=== PATIENT | male | born 1985 | race Native Hawaiian/Other Pacific Islander ===

== ENCOUNTER 2016-12-18 11:49 | Emergency (ER) | payer MEDICAID ==
[2016-12-18 12:14] VITALS: BP 144/91; PULSE 77; RESP 18; TEMP 97.8
--- NOTE | 2016-12-18 12:41 | ED ---
Upper Extremity HPI - General Chief Complaint: Extremity Injury, Upper Stated Complaint: RT SHOULDER PAIN Time Seen by Provider: 12/18/16 12:27 Source: patient, RN notes reviewed, old records reviewed Mode of arrival: ambulatory Limitations: physical limitation - History of Present Illness Initial Comments: 31-year-old male presents the ED chief complaint of right shoulder pain. Patient reports that he was trying to start up a m[place], and when he pulled the pulse started he felt something tear within his right shoulder. He has a known history of rotator cuff injury. He states that then he had increasing pain. He denies any elbow pain denies any peripheral paresthesias. He reports the pain is mainly over the posterior shoulder.Patient denies any recent fever, chills, shortness of breath, chest pain, back pain, abdominal pain , nausea vomiting, numbness or tingling, dysuria or hematuria, constipation or diarrhea, headaches or visual changes, or any other current symptoms - Related Data Previous Rx's Medication Instructions Recorded Ibuprofen [Motrin] 600 mg PO Q6HR PRN #30 tab 12/18/16 traMADol HCl [Ultram] 50 mg PO Q6H PRN #15 tab 12/18/16 Allergies Allergy/AdvReac Type Severity Reaction Status Date / Time No Known Allergies Allergy Verified 12/18/16 12:14 Review of Systems ROS Statement: Those systems with pertinent positive or pertinent negative responses have been documented in the HPI. ROS Other: All systems not noted in ROS Statement are negative. Past Medical History Past Medical History: No Reported History History of Any Multi-Drug Resistant Organisms: None Reported Additional Past Surgical History / Comment(s): VASECTOMY Past Psychological History: No Psychological Hx Reported Smoking Status: Current every day smoker Past Alcohol Use History: Occasional Past Drug Use History: None Reported General Exam - General Exam Comments Initial Comments: 31-year-old male. No acute distress. Limitations: physical limitation General appearance: alert, in no apparent distress Head exam: Present: atraumatic, normocephalic, normal inspection Eye exam: Present: normal appearance, PERRL, EOMI. Absent: scleral icterus, conjunctival injection, periorbital swelling ENT exam: Present: normal exam, mucous membranes moist Neck exam: Present: normal inspection. Absent: tenderness, meningismus, lymphadenopathy Respiratory exam: Present: normal lung sounds bilaterally. Absent: respiratory distress, wheezes, rales, rhonchi, stridor Cardiovascular Exam: Present: regular rate, normal rhythm, normal heart sounds. Absent: systolic murmur, diastolic murmur, rubs, gallop, clicks GI/Abdominal exam: Present: soft, normal bowel sounds. Absent: distended, tenderness, guarding, rebound, rigid Extremities exam: Present: normal inspection, full ROM, normal capillary refill. Absent: tenderness, pedal edema, joint swelling, calf tenderness Right Shoulder Exam: Present: normal inspection, tenderness (Over supraspinatus area) . Absent: full ROM (Patient has limited adduction and abduction due to pain.) Upper Arm exam: Present: normal inspection, full ROM Elbow exam: Present: normal inspection, full ROM Forearm Wrist exam: Present: normal inspection, full ROM Hand Wrist exam: Present: normal inspection, full ROM Back exam: Present: normal inspection Neurological exam: Present: alert, oriented X3, CN II-XII intact Psychiatric exam: Present: normal affect, normal mood Skin exam: Present: warm, dry, intact, normal color. Absent: rash Course Vital Signs 12/18/16 12:08 Temperature 97.8 F Pulse Rate 77 Respiratory 18 Rate Blood Pressure 144/91 O2 Sat by Pulse 99 Oximetry Medical Decision Making - Medical Decision Making 31-year-old male presents the ED chief complaint of right shoulder pain. Patient reports that he was trying to start up a [place], and when he pulled the pulse started he felt something tear within his right shoulder. He has a known history of rotator cuff injury. He states that then he had increasing pain. She received right shoulder x-ray. He is tender over the supraspinatus area. Right shoulder x-ray shows evidence of abnormal acromioclavicular joint with a class III fracture however this does appear to be chronic and old. When discussed this with the patient he reports he does have a breathing previous fracture consistent with this. He knows about this injury. Patient reports he does not have an orthopedic. Patient will be given a sling. Patient be discharged with pain medication. Discussed close follow- up with orthopedic physician. Patient received treatment plan will comply. Return parameters were discussed. - Radiology Data Radiology results: report reviewed No acute fracture of right shoulder dislocation of the right glenohumeral joint. Radiographic findings of, acromioclavicular injury and clavicular subluxation at least type III with large ossific body in the [place] with airspace. This finding may be chronic in comparison with a prior imaging is recommended if available to determine chronicity. Disposition Clinical Impression: Injury of right rotator cuff, AC joint pain Disposition: HOME SELF-CARE Condition: Good Instructions: Rotator Cuff Injury (ED), Acromioclavicular Separation (ED) Additional Instructions: Patient advised to follow-up with orthopedic physician. Remain in the splint. Patient advised to take anti-inflammatory medication and pain medication instructed. Return to the emergency department if any alarming signs or symptoms occur. Prescriptions: Ibuprofen [Motrin] 600 mg PO Q6HR PRN #30 tab PRN Reason: Pain traMADol HCl [Ultram] 50 mg PO Q6H PRN #15 tab PRN Reason: Pain Referrals: Kyleigh Asencio MD [Primary Care Provider] - 1-2 days Vick Hutson MD [Medical Doctor] - 1-2 days Time of Disposition: 13:06
--- NOTE | 2016-12-18 12:56 | XR ---
EXAMINATION TYPE: XR shoulder complete RT DATE OF EXAM: 12/18/2016 CLINICAL HISTORY: Right shoulder pain after lifting injury TECHNIQUE: Three views of the right shoulder are obtained. COMPARISON: None. FINDINGS: There is no acute fracture/dislocation evident in the right shoulder. There is widening of the acromioclavicular joint of up to 14 mm in superior displacement of the distal clavicle. The infe rior edge of the distal clavicle is superior to the acromion compatible with at least a type III, cla vicular subluxation injury. Additionally a large osseous body is seen in the acromioclavicular space which is well corticated. Therefore this may be a chronic injury. Humeral head is appropriately place d. The glenohumeral joint space appears within normal limits. The visualized ribs are intact and unre markable. IMPRESSION: 1. There is no acute fracture of the right shoulder or dislocation of the right glenohumeral joint. 2. Radiographic findings of acromioclavicular injury and clavicular subluxation (at least type III) w ith large ossific body in the acromioclavicular joint space. This finding may be chronic and comparis on with any prior imaging is recommended if available to determine chronicity.
[2016-12-18] MEDS ORDERED: traMADol 50 MG STARTER PACK 3 TAB BTL PO STA (13:07)
== END 2016-12-18 13:24 | disposition home or self-care (01) ==
LOC: EC 11:49
DX: S46.001A Unspecified injury of muscle(s) and tendon(s) of the rotator cuff of right shoulder, initial encounter (principal); F17.200 Nicotine dependence, unspecified, uncomplicated; X50.9XXA Other and unspecified overexertion or strenuous movements or postures, initial encounter; Y99.0 Civilian activity done for income or pay; Y92.096 Garden or yard of other non-institutional residence as the place of occurrence of the external cause
CPT/HCPCS: 99284

== ENCOUNTER → 2017-02-27 | Outpatient (CLI) | payer MEDICAID ==
--- NOTE | 2017-02-27 09:11 | MR ---
EXAMINATION TYPE: MR cervical spine wo con DATE OF EXAM ORDERED: 02/27/2017 8:37 AM HISTORY: M54.2 Cervicalgia. TECHNOLOGIST HISTORY AT TIME OF EXAM: Cervicalgia, right arm and shoulder numbness COMPARISON: None. TECHNIQUE: Multiplanar, multiecho imaging of the cervical spine was obtained without contrast on a 1 .5 natacha magnet. FINDINGS: Prevertebral soft tissues are normal. Vertebral body height and alignment are maintained. Atlantoaxial relationships are normal. There is a normal craniocervical junction. Cord signal is normal. At C2-3 and C3-4, no definite abnormality is seen. At C4-C5, there is mild disc space loss. The intervertebral foramina are well maintained. There is a diffuse disc displacement. The facet and uncovertebral joints are unremarkable. At C5-C6, there is mild disc space loss. Intervertebral foramina are widely maintained. There is no s ignificant compressive discopathy. The facet and uncovertebral joints are unremarkable. At C6-C7, the intervertebral foramina are well maintained. There is a mild, diffuse disc displacement . The facet and uncovertebral joints are unremarkable. At C7-T1, no abnormality is seen. IMPRESSION: 1. NO SIGNIFICANT COMPRESSIVE DISCOPATHY OR NEURAL COMPRESSION. 2. 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 3. NO FINDING TO EXPLAIN THE PATIENT'S RIGHT SHOULDER NUMBNESS.
== END | disposition home or self-care (01) ==
LOC: RADMRIMAIN 08:05
PROVIDERS: ATTEND Orthopaedic Surgery
DX: M50.121 Cervical disc disorder at C4-C5 level with radiculopathy (principal)
CPT/HCPCS: 72141

== ENCOUNTER → 2017-03-29 | Outpatient (CLI) | payer MEDICAID ==
--- NOTE | 2017-03-29 23:19 | MR ---
EXAMINATION TYPE: MR brachial plexus RT wo/w con DATE OF EXAM: 03/29/2017 COMPARISON: NONE HISTORY: Right shoulder pain with numbness CONTRAST: Standard multiplanar, multisequence MRI departmental protocol utilizing 9 mL intravenous Gadavist adam olinium contrast. FINDINGS: The cervical vertebra have normal spacing and alignment. There is no evidence of spinal danny nosis. Cervical spinal cord is not optimally evaluated. I see no evidence of cervical bony spinal danny nosis. There is no cervical paraspinal mass. There is no evidence of cervical adenopathy. There is deformity of the lateral end of the clavicle related to an old ununited displaced clavicle f racture. There is malalignment of the acromion with the clavicle. I do not see evidence of a rotator cuff obvious tear. The cervical spinal muscles are fairly symmetric. There is no evidence of atrophy. I see no pathologic enhancement. IMPRESSION: Negative MR scan of the brachial plexus. 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 No sign of rotator cuff tear. No evidence of cervical neura l foraminal stenosis.
== END | disposition home or self-care (01) ==
LOC: RADMRIMAIN 16:55
PROVIDERS: ATTEND Orthopaedic Surgery Orthopaedic Surgery of the Spine
DX: G54.0 Brachial plexus disorders (principal); M54.2 Cervicalgia; Z87.81 Personal history of (healed) traumatic fracture
CPT/HCPCS: 71552; A9581

== ENCOUNTER 2018-05-14 23:07 | Emergency (ER) | payer MEDICAID ==
[2018-05-14 23:35] VITALS: RESP 18
--- NOTE | 2018-05-15 00:05 | ED ---
Head Injury HPI - General Source: patient, RN notes reviewed Mode of arrival: wheelchair Limitations: no limitations <Arnie Ghosh - Last Filed: 05/15/18 01:37> <Latonia Wagner - Last Filed: 05/19/18 00:00> - General Chief complaint: Head Injury Stated complaint: Fall/Head Injury Time Seen by Provider: 05/14/18 23:44 - History of Present Illness Initial comments: 33-year-old male presents emergency Department chief complaint of head injury. Patient states that he was walking to his house states he tripped and fell on the steps. Patient states he noticed some blood running down his face and states that he got up looked in the air and immediately came the emergency department. Patient states that he has been drinking alcohol tonight. Patient states his tetanus is up-to-date within last 5 years. He states he may have passed out but is unsure. Denies any neck pain. Patient states that there is a chunk of skin missing above his right eyebrow. Denies any blurred vision, double vision or any ocular pain with movement. Denies neck pain, back pain, lower extremity injury. He does state it is laceration to his left hand index finger. Patient states is very sore but has good range of motion. Patient also states he had recent dental work (Arnie Ghosh) - Related Data Previous Rx's Medication Instructions Recorded Ibuprofen [Motrin] 600 mg PO Q6HR PRN #30 tab 12/18/16 traMADol HCl [Ultram] 50 mg PO Q6H PRN #15 tab 12/18/16 Allergies/Adverse reactions: Allergies Allergy/AdvReac Type Severity Reaction Status Date / Time No Known Allergies Allergy Verified 05/14/18 23:35 Review of Systems ROS Other: All systems not noted in ROS Statement are negative. <Arnie Ghosh - Last Filed: 05/15/18 01:37> ROS Other: All systems not noted in ROS Statement are negative. <Latonia Wagner - Last Filed: 05/19/18 00:00> ROS Statement: Those systems with pertinent positive or pertinent negative responses have been documented in the HPI. Past Medical History Past Medical History: No Reported History History of Any Multi-Drug Resistant Organisms: None Reported Additional Past Surgical History / Comment(s): VASECTOMY Past Psychological History: No Psychological Hx Reported Smoking Status: Current every day smoker Past Alcohol Use History: Occasional Past Drug Use History: Marijuana <Arnie Ghosh - Last Filed: 05/15/18 01:37> General Exam Limitations: no limitations General appearance: alert, in no apparent distress Head exam: Present: atraumatic, normocephalic, normal inspection Eye exam: Present: normal appearance, PERRL, EOMI, periorbital swelling, periorbital tenderness (Right), other (4 70 x 4 cm area of missing skin layers, deep, to musculature no active bleeding). Absent: scleral icterus, conjunctival injection Neck exam: Present: normal inspection, full ROM. Absent: tenderness, meningismus, lymphadenopathy Respiratory exam: Present: normal lung sounds bilaterally. Absent: respiratory distress, wheezes, rales, rhonchi, stridor Cardiovascular Exam: Present: regular rate, normal rhythm, normal heart sounds. Absent: systolic murmur, diastolic murmur, rubs, gallop, clicks GI/Abdominal exam: Present: soft, normal bowel sounds. Absent: distended, tenderness, guarding, rebound, rigid Neurological exam: Present: alert, oriented X3, CN II-XII intact, reflexes normal. Absent: motor sensory deficit Skin exam: Present: warm, dry, intact, normal color. Absent: rash <Arnie Ghosh - Last Filed: 05/15/18 01:37> Vital Signs 05/14/18 05/15/18 23:32 02:09 Temperature 98.4 F 98.1 F Pulse Rate 72 65 Respiratory 18 18 Rate Blood Pressure 122/90 135/90 O2 Sat by Pulse 98 99 Oximetry Medical Decision Making <Arnie Ghosh - Last Filed: 05/15/18 01:37> <Latonia Wagner - Last Filed: 05/19/18 00:00> - Medical Decision Making Dr. Wagner did discuss the case with Dr. Salas at [facility] in which the patient will be transferred for plastic surgery. (Arnie Ghosh) I personally saw and examined the patient. I reviewed and agree with the mid- level provider findings including all diagnostic interpretations and treatment plans as written unless otherwise stated. I was present for stafford portions of any procedures performed. (Latonia Wagner) Disposition - Out of Hospital Transfer - Req. Specs Out of Hospital Transfer - Requested Specifics: Other Emergency Center ([facility]) <Arnie Ghosh - Last Filed: 05/15/18 01:37> Is patient prescribed a controlled substance at d/c from ED?: No <Latonia Wagner - Last Filed: 05/19/18 00:00> Clinical Impression: Facial laceration, Head injury, Finger laceration, Fall, Avulsion of skin of face Disposition: OTHER INSTITUTION NOT DEFINED Condition: Stable Referrals: Kyleigh Asencio MD [Primary Care Provider] - 1-2 days
--- NOTE | 2018-05-15 01:04 | CT ---
EXAMINATION TYPE: CT brain twyla marcum con DATE OF EXAM: 05/15/2018 COMPARISON: None HISTORY: Fall headache. Neck pain. CT DLP: 1076.00 mGycm Automated exposure control for dose reduction was used. TECHNIQUE: CT scan of the head and cervical spine are performed without contrast. FINDINGS: Ventricles of normal size. There is no mass effect nor midline shift. There is no sign of intracranial hemorrhage. Calvarium is intact. There is mucosal thickening and sclerosis in the masto id sinuses. There is mild straightening of the cervical spine. Disc spaces are normal. Posterior elements are int act. Facet joints appear normal. The skull base is intact. IMPRESSION: Normal CT scan of the brain. Bilateral mastoiditis. Normal CT scan cervical spine.
--- NOTE | 2018-05-15 01:06 | CT ---
EXAMINATION TYPE: CT facial bones wo con DATE OF EXAM: 05/15/2018 COMPARISON: None HISTORY: fall CT DLP: mGycm Automated exposure control for dose reduction was used. TECHNIQUE: CT scan of the sinuses is performed without contrast, axial images are obtained, coronal r eformatted images are also reviewed. FINDINGS: The mandibular ring is intact. The zygomatic arches appear normal. Mandibular joints appear normal. The nasal bone appears intact. Orbital margins are intact. There is no evidence of retro-orb ital mass. There is soft tissue deformity above the right orbit consistent with laceration. Nasal bon e appears intact. There is fairly normal aeration of the paranasal sinuses. There is no evidence of a blowout fracture. There is no sign of a foreign body. IMPRESSION: No fracture seen. Laceration deformity of the right frontal scalp.
--- NOTE | 2018-05-15 01:11 | XR ---
EXAMINATION TYPE: XR hand complete LT DATE OF EXAM: 05/15/2018 COMPARISON: NONE HISTORY: Pain TECHNIQUE: 3 views FINDINGS: I see no fracture nor dislocation. Metacarpals are intact. There are no erosions. There is no subluxation. There are no pathologic calcifications. IMPRESSION: Negative exam. No evidence of inflammatory arthritis. No fracture.
[2018-05-15 02:10] VITALS: BP 135/90; PULSE 65; TEMP 98.1
[2018-05-15] MEDS ORDERED: ACETAMINOPHEN TAB 325 MG TAB PO STA (02:11)
== END 2018-05-15 02:26 | disposition short-term general hospital (02) ==
LOC: EC 23:07
DX: S61.211A Laceration without foreign body of left index finger without damage to nail, initial encounter (principal); S01.111A Laceration without foreign body of right eyelid and periocular area, initial encounter; F17.200 Nicotine dependence, unspecified, uncomplicated; W01.0XXA Fall on same level from slipping, tripping and stumbling without subsequent striking against object, initial encounter; Y93.01 Activity, walking, marching and hiking; Y92.009 Unspecified place in unspecified non-institutional (private) residence as the place of occurrence of the external cause
CPT/HCPCS: 70450; 70486; 72125; 99285

== ENCOUNTER → 2019-07-07 | Outpatient (CLI) | payer MEDICAID ==
--- NOTE | 2019-07-09 22:00 | US ---
EXAMINATION TYPE: US scrotum with doppler. TECHNIQUE: Grayscale and color Doppler Duplex imaging performed of the scrotum. DATE OF EXAM: 07/07/2019 COMPARISON: NONE CLINICAL HISTORY: 34-year-old male R68.89 Abnormal clinical findings, testicular pain. Pain FINDINGS: EXAM MEASUREMENTS: TESTICLES: Right Testicle: 4.6 x 2.4 x 3.3 cm Left Testicle: 4.6 x 2.4 x 3.4 cm EPIDIDYMIS HEAD: Right Epididymis: 1.0 x 1.1 x .9 cm Left Epididymis: .7 x 1.0 x .6 cm Doppler performed to assess for testicular vascularity; good bilateral color flow and waveforms are s een. There is no evidence of testicular torsion. Presence of hydroceles: No Presence of varicoceles: No IMPRESSION: No specific sonographic abnormality identified.
== END | disposition home or self-care (01) ==
LOC: RADUSWWP 16:43
PROVIDERS: ATTEND Physician Assistant
DX: N50.812 Left testicular pain (principal); N50.811 Right testicular pain; R68.89 Other general symptoms and signs
CPT/HCPCS: 76870; 93975